=== PATIENT | female | born 1945 | race Caucasian/White ===

== ENCOUNTER → 2017-03-01 | Outpatient (CLI) | payer OTHER ==
[~2017-03-01] MED LIST: ACET-1256 PO; CALC500C70 PO; CIPR-255 PO; CLR10 PO; ECHI125C PO; HYDR-5688 PO; MULT1CAP6 PO
--- NOTE | 2017-03-06 08:50 | ECHOCARDIOGRAM REPORT ---
*NOTICE TO RECEIVING LIBERTARIAN AGENCY This information is strictly Confidential and protected under [place] law. [place] law prohibits you from making any further disclosure of this information unless further disclosure is expressly permitted by the written consent of the person to whom it pertains or is authorized by law. A general authorization for the release of medical or other information is not sufficient for this purpose. Hospital accepts no responsibility if the information is made available to any other person, INCLUDING THE PATIENT. Interpretation Summary * Name: EMILY ZUNIGA Study Date: 03/01/2017 01:31 PM * HR: 90 * : 1945 (M/d/yyyy) Gender: Female Height: 61 in * Age: 71 yrs Ethnicity: [place] Weight: 107 lb * Ordering Physician: Mary Jane Mora M.D. * Referring Physician: Mary Jane Mora M.D. * Performed By: Nika Hoyt RCS * Reason For Study: Murmur * BSA: 1.4 m2 * -- Conclusions -- * Left ventricular systolic function is normal. * Grade I diastolic dysfunction, (abnormal relaxation pattern). * Right ventricular systolic pressure is normal. * Borderline aortic root dilatation. Procedure Details * Left Ventricle The left ventricle is normal in size. There is normal left ventricular wall thickness. Ejection Fraction = 65-70%. Left ventricular systolic function is normal. Grade I diastolic dysfunction, (abnormal relaxation pattern). * Right Ventricle The right ventricle is normal in size and function. * Atria The left atrial size is normal. Right atrial size is normal. * Mitral Valve The mitral valve is grossly normal. Significant mitral regurgitation is absent. * Tricuspid Valve The tricuspid valve is not well visualized, but is grossly normal. There is trace tricuspid regurgitation. Right ventricular systolic pressure is normal. * Aortic Valve The aortic valve is not well visualized. No hemodynamically significant valvular aortic stenosis. There is no significant aortic regurgitation. * Great Vessels Borderline aortic root dilatation. * Pericardium/Pleural There is no pericardial effusion. * * MMode 2D Measurements and Calculations * IVSd 0.77 cm * * LVIDd 3.9 cm * LVIDs 2.2 cm * LVPWd 0.83 cm * * IVS/LVPW 0.92 * FS 42.4 % * EDV(Teich) 64.3 ml * ESV(Teich) 16.6 ml * EF(Teich) 74.2 % * * EDV(cubed) 57.5 ml * ESV(cubed) 11.0 ml * EF(cubed) 80.9 % * * LV mass(C)d 87.9 grams * LV mass(C)dI 60.7 grams/m\S\2 * * SV(Teich) 47.7 ml * SI(Teich) 32.9 ml/m\S\2 * SV(cubed) 46.5 ml * SI(cubed) 32.1 ml/m\S\2 * * Ao root diam 2.2 cm * Ao root area 4.0 cm\S\2 * * LVOT diam 1.9 cm * LVOT area 2.8 cm\S\2 * * EDV(MOD-sp4) 46.8 ml * ESV(MOD-sp4) 9.3 ml * EF(MOD-sp4) 80.0 % * * EDV(MOD-sp2) 49.7 ml * ESV(MOD-sp2) 16.8 ml * EF(MOD-sp2) 66.1 % * * SV(MOD-sp4) 37.4 ml * SI(MOD-sp4) 25.8 ml/m\S\2 * * SV(MOD-sp2) 32.8 ml * SI(MOD-sp2) 22.7 ml/m\S\2 * * * Doppler Measurements and Calculations * MV E max mario 58.8 cm/sec * MV A max mario 64.2 cm/sec * * MV E/A 0.92 * * Ao V2 max 112.4 cm/sec * Ao max PG 5.0 mmHg * Ao max PG (full) 1.0 mmHg * MERCEDES(V,A) 2.5 cm\S\2 * MERCEDES(V,D) 2.5 cm\S\2 * * LV V1 max PG 4.0 mmHg * * LV V1 max 100.3 cm/sec * * TR max mario 226.6 cm/sec * * * *
== END | disposition home or self-care (01) ==
LOC: C.CPL 13:18
PROVIDERS: ATTEND Family Medicine
DX: R01.1 Cardiac murmur, unspecified (principal)

== ENCOUNTER 2017-03-06 07:14 | Inpatient (IN) | payer OTHER ==
[2017-02-22 08:12] VITALS: BMI 19.0
--- NOTE | 2017-02-22 08:50 | PAT Medication Instructions ---
Service Date Feb 22, 2017. Current Home Medication List Acetaminophen (Tylenol), 500 MG PO DAILY PRN for Pain or Fever Calcium/Vitamin D (Os-Chandler 500 Plus D), 1 TAB PO QAM Echinacea (Echinacea), 1 TAB PO DAILY PRN for signs of cold Loratadine (Claritin), 10 MG PO DAILY PRN for ALLERGIC REACTION Multiple Vitamins W/ Minerals (Multi For Her), 1 TAB PO QAM Medication Instructions For Your Scheduled Surgery - Hold the following medications the morning of surgery: Loratadine (Claritin), 10 MG PO DAILY PRN for ALLERGIC REACTION Multiple Vitamins W/ Minerals (Multi For Her), 1 TAB PO QAM Calcium/Vitamin D (Os-[place]and[place] 500 Plus D), 1 TAB PO QAM Echinacea (Echinacea), 1 TAB PO DAILY PRN for signs of cold - Take the following medications the morning of surgery with a sip of water OTHERWISE NOTHING TO EAT OR DRINK AFTER MIDNIGHT: Acetaminophen (Tylenol), 500 MG PO DAILY PRN for Pain or Fever (may take if needed up to 4 hours prior to surgery) - Take the following medications as scheduled the night before surgery: Acetaminophen (Tylenol), 500 MG PO DAILY PRN for Pain or Fever If you have any questions please call us at [phone] or [phone] or [phone]
[2017-02-22 10:37] LABS: BASO % 0.2 %; BASO ABS # 0.01 K/uL (0-0.2); COMPLETE YES; EOS % 0.8 %; IG% 0.2 %; LYMPH % 29.7 %; LYMPH ABS # 1.78 K/uL (1.2-3.4); MEAN CELL VOLUME 86.7 fL (80-100); MEAN CORPUSCULAR HEMOGLOBIN 28.5 pg (25-34); MEAN CORPUSCULAR HGB CONC 32.9 g/dl (32-36); MEAN PLATELET VOLUME 12.1 fL (7.4-10.4); NEUT % 58.1 %; PLATELET COUNT 172 K/uL (130-400); RED BLOOD COUNT 4.73 M/uL (4.2-5.4); WHITE BLOOD COUNT 5.99 K/uL (4.8-10.8)
[2017-02-22 10:46] LABS: BUN/CREATININE RATIO 16.5 (10-20); CALCIUM 9.6 mg/dl (8.5-10.1); CREATININE 0.75 mg/dl (0.60-1.20); POTASSIUM 4.2 mmol/L (3.5-5.1)
[~2017-03-06] VITALS: Ht 154.9 cm; Wt 46.0 kg
[2017-03-06] VITALS (12 sets, daily range): BP systolic 119–186; BP diastolic 67–84; PULSE 67–89; TEMP 36.3–36.9; O2SAT 96–100; Ht 154.9 cm; Wt 46.0 kg
[~2017-03-06 07:14] MED LIST changes: -CIPR-255 PO; +CLINDAMYCIN 600 MG/54 ML D5W IV SCH; -HYDR-5688 PO; +LACTATED RINGER'S 1000ML 1,000 ML IV SCH
[2017-03-06] MEDS ORDERED: DEXAMETHASONE SOD INJ 4 MG/ML VIAL ONE (08:44)
[2017-03-06] MEDS ORDERED: ONDANSETRON INJ 2 MG/ML 2 ML VIAL ONE (08:44)
[2017-03-06] MEDS ORDERED: PROPOFOL IV EMULSION 10 MG/ML 20 ML VIAL IV ONE (08:44)
[2017-03-06] MEDS ORDERED: LIDOCAINE HCL 2% 2 ML VIAL (20MG/ML) ONE (08:44)
[2017-03-06] MEDS ORDERED: FENTANYL CITRATE INJ 50 MCG/1 ML 2 ML VIAL ONE ×2 (08:45→10:55)
[2017-03-06] MEDS ORDERED: MIDAZOLAM HCL 1 MG/ML 2ML VIAL ONE (08:45)
[2017-03-06] MEDS ORDERED: ATROPINE SULFATE 0.1 MG/ML 5ML SYR IV PRN (09:45)
[2017-03-06] MEDS ORDERED: FENTANYL CITRATE INJ 50 MCG/1 ML 2 ML VIAL IV PRN (09:45)
[2017-03-06] MEDS ORDERED: EpHEDrine SULFATE INJ 50 MG/ML AMP IV PRN (09:45)
[2017-03-06] MEDS ORDERED: ONDANSETRON INJ 2 MG/ML 2 ML VIAL IV PRN ×2 (09:45→11:45)
--- NOTE | 2017-03-06 09:58 | DIAGNOSTIC IMAGING REPORT ---
LYMPHOSCINTIGRAPHY CLINICAL HISTORY: Right-sided breast cancer. PROCEDURE: Using standard sterile technique, 4 periareolar intradermal and one deep injection of 0.522 mCi of Lymphoseek was placed in the right breast. The patient tolerated the procedure well. There were no immediate complications. The patient was subsequently transported to the surgical suite. No imaging was obtained at the referring physician's request. IMPRESSION: Injection of 0.522 mCi of Lymphoseek in the right breast. Electronically signed by: Pranav Patel M.D. 03/06/2017 9:57 AM Dictated Date/Time: 03/06/2017 9:48 AM
[2017-03-06] MEDS ORDERED: METHYLENE BLUE 0.5% 10 ML VIAL ONE (10:14)
[2017-03-06] MEDS ORDERED: BUPIVACAINE 0.5 % 5 MG/1 ML MPF 30ML VIAL ONE (10:14)
[2017-03-06] MEDS ORDERED: ISOSULFAN BLUE 10 MG/ML VIAL 5 ML ONE (10:19)
[2017-03-06] MEDS ORDERED: LACTATED RINGER'S 1000ML 1,000 ML IV SCH (11:32)
--- NOTE | 2017-03-06 11:32 | [facility] Operative Report ---
Operative Report Operative Date Mar 06, 2017. Pre-Operative Diagnosis Right Breast Cancer Post-Operative Diagnosis Same as preoperative Procedure(s) Performed Right Breast Mastectomy with Right [place] Lymph Node Biopsy Surgeon Dr. Jesus Parekh Java Web Application Developer Surgeon(s) Florencio Mancini PA-C Estimated Blood Loss 20ML Findings SLN negative on frozen section Specimens Frozen Section: 1. [place] Lymph Node, Right Breast Fresh: A. Right Breast, silk is lateral Drains #[address] [place] to bulb Anesthesia gen Complication(s) None Disposition Recovery Room / PACU I attest to the content of the Intraoperative Record and any orders documented therein. Any exceptions are noted below.
[2017-03-06] MEDS ORDERED: PROMETHAZINE HCL INJ 25 MG in SODIUM CHLORIDE 0.9% 50ML 50 ML IV PRN (11:45)
[2017-03-06] MEDS ORDERED: MoRPHine SULFATE 2 MG/ML CARP IV PRN (11:45)
[2017-03-06] MEDS ORDERED: ACETAMINOPHEN IV 100 ML IV ONE (11:45)
[2017-03-06] MEDS ORDERED: MoRPHine SULFATE 4 MG/ML 1 ML CARP\\VIAL IV PRN (11:45)
[2017-03-06] MEDS ORDERED: HYDROCODONE/ACETAMOPHEN 5/325MG TAB PO PRN ×2 (11:45)
--- NOTE | 2017-03-06 11:54 | OPERATIVE REPORT ---
DATE OF OPERATION: 03/06/2017 NAME OF OPERATION: Right mastectomy with sentinel lymph node biopsy. PREOPERATIVE DIAGNOSIS: Right breast cancer. POSTOPERATIVE DIAGNOSIS: Same. STAFF SURGEON: Dr. Jesus Parekh. PERSONAL LINES APPRAISER: Florencio Mancini PA-C ANESTHESIA: General. DESCRIPTION OF PROCEDURE: The patient was brought into the operating room and placed on the operating table in the supine position. Her right arm was extended on an arm board. Her right chest and axilla were prepped and draped in the usual fashion. Using the Neoprobe, we made an incision in the right axilla using 0.5% plain Marcaine to anesthetize the skin and carrying dissection down identifying the sentinel lymph node, which was relatively large. It was sent for frozen section and it was found to be negative. During the frozen section, we performed mastectomy by making an elliptical incision transversely across the right breast from sternum to the axilla, incorporating the nipple areolar complex and dissecting the subcutaneous tissue away from the breast tissue superiorly and inferiorly constructing superior and inferior breast flaps. Then, the breast was dissected away from the pectoralis major muscle, taking the fascia. It was marked with a long silk suture lateral. At this point, after irrigation, the breast incision was closed after placing a 15 round Beck-Bell drain into the wound, securing it to the skin using 3-0 nylon suture. The tissue was reapproximated using subcutaneous 3-0 Vicryl and then subcuticular running suture of 4-0 Monocryl and Steri-Strips. The axilla was closed, reapproximating the deep tissue using 2-0 plain catgut suture and then the skin using interrupted 4-0 nylon suture. The patient was transferred to recovery room in stable condition. I attest to the content of the Intraoperative Record and any orders documented therein. Any exception s are noted below.
--- NOTE | 2017-03-06 12:26 | Anesthesiology Progress Note ---
Anesthesia Post Op Note Date & Time Mar 06, 2017 at 12:26 Vital Signs Pain Intensity: 1 Vital Signs Past 12 Hours Date Time Temp Pulse Resp B/P (MAP) Pulse Ox O2 Delivery O2 Flow Rate FiO2 03/06/17 12:17 36.3 03/06/17 12:15 168/73 03/06/17 12:12 80 16 100 03/06/17 12:12 80 03/06/17 12:10 164/73 03/06/17 12:07 77 13 03/06/17 12:07 76 13 100 03/06/17 12:05 152/78 03/06/17 12:02 77 18 03/06/17 12:02 77 18 100 03/06/17 12:00 171/74 03/06/17 11:58 Nasal Cannula 3 03/06/17 11:57 83 15 100 03/06/17 11:57 83 15 03/06/17 11:55 169/82 03/06/17 11:52 87 18 03/06/17 11:52 87 18 100 03/06/17 11:50 169/81 03/06/17 11:47 95 16 100 03/06/17 11:47 95 16 03/06/17 11:45 159/78 03/06/17 11:44 180/81 03/06/17 11:42 36.3 95 14 180/89 98 Mask 10 03/06/17 08:06 36.7 67 16 176/73 (107) 97 Room Air Notes Mental Status: alert / awake / arousable, participated in evaluation Pt Amnestic to Procedure: Yes Nausea / Vomiting: adequately controlled Pain: adequately controlled Airway Patency, RR, SpO2: stable & adequate BP & HR: stable & adequate Hydration State: stable & adequate Anesthetic Complications: no major complications apparent
[2017-03-06] MEDS ORDERED: HydrALAZINE HCL 20 MG/ML VIAL IV. PRN (14:00)
--- NOTE | 2017-03-06 14:21 | Medical Consult ---
Consultation Date of Consultation: Mar 06, 2017. Attending Physician: Jesus Parekh M.D. Reason for Consultation: Medical management History of Present Illness This is a 71 y/o female with a history of right breast cancer, osteoporosis and h/o brain aneurysm who presents s/p right mastectomy w/sentinel lymph node biopsy with Dr. Parekh on 03/06 for medical management. The patient reports feeling well postoperatively. She does complain of some nausea but denies any vomiting. She states that she has some mild achy pain at the surgical site which she rates a 3/10. She also reports a dry, non-productive cough and some tingling in her right arm. She has not yet eaten due to the nausea. She does report passing gas. She has not urinated or had a bowel movement yet. The patient denies fevers, chills, sweats, chest pain, palpitations, claudication, cough, wheezing, shortness of breath, vomiting, abdominal pain, dysuria, hematuria, urinary retention, paralysis, weakness. Past Medical/Surgical History Right breast cancer Osteoporosis H/o brain aneurysm 1984 s/p surgical intervention Family History Breast cancer Lung cancer Stroke Social History Smoking Status: Never Smoker Smokeless Tobacco Use: No Alcohol Use: none Drug Use: none Marital Status: Housing Status: lives with significant other Occupation Status: retired Allergies Coded Allergies: Penicillins (Verified Allergy, Intermediate, Hives, 03/06/17) Sulfa Antibiotics (Verified Allergy, Intermediate, Hives, 03/06/17) Sulfamethoxazole w/Trimethoprim (Verified Allergy, Intermediate, Hives, ) Current Inpatient Medications Current Inpatient Medications Medications (Trade) Dose Ordered Sig/Klaudia Route Start Time Stop Time Status Last Admin Dose Admin Fentanyl Citrate (Fentanyl Inj) 50 mcg Q5M PRN IV 03/06/17 09:45 03/06/17 14:45 03/06/17 11:51 50 MCG Ondansetron HCl (Zofran Inj) 4 mg ONE PRN IV 03/06/17 09:45 03/06/17 14:45 Ephedrine Sulfate (EpHEDrine SULFATE INJ) 5 mg Q5M PRN IV 03/06/17 09:45 03/06/17 14:45 Atropine Sulfate (Atropine Sulfate 0.1MG/Ml Inj) 0.5 mg Q1M PRN IV 03/06/17 09:45 03/06/17 14:45 Lactated Ringer's 1,000 ml @ 50 mls/hr Q20H IV 03/06/17 11:32 03/06/17 16:00 03/06/17 13:03 50 MLS/HR Clindamycin Phosphate 600 mg/ Dextrose 54 ml @ 100 mls/hr Q8H IV 03/06/17 18:00 03/16/17 13:59 Acetaminophen/ Hydrocodone Bitart ([place] 5/325 Tab) 1 tab Q4 PRN PO 03/06/17 11:45 03/20/17 11:44 Acetaminophen/ Hydrocodone Bitart ([place] 5/325 Tab) 2 tab Q4 PRN PO 03/06/17 11:45 03/20/17 11:44 Morphine Sulfate (MoRPHine SULFATE INJ) 2 mg Q4H PRN IV 03/06/17 11:45 03/20/17 11:44 Morphine Sulfate (MoRPHine SULFATE INJ) 4 mg Q4H PRN IV 03/06/17 11:45 03/20/17 11:44 Promethazine HCl 25 mg/Sodium Chloride 51 ml @ 204 mls/hr Q6H PRN IV 03/06/17 11:45 04/05/17 11:44 Ondansetron HCl (Zofran Inj) 4 mg Q6H PRN IV 03/06/17 11:45 04/05/17 11:44 Hydralazine HCl (HydrALAZINE INJ) 10 mg Q6H PRN IV. 03/06/17 14:00 04/05/17 13:59 Review of Systems See HPI for pertinent positives and negatives. All other systems reviewed and negative. Physical Exam Date Time Temp Pulse Resp B/P (MAP) Pulse Ox O2 Delivery O2 Flow Rate FiO2 03/06/17 13:35 74 18 177/78 (111) 100 2.0 03/06/17 13:05 72 18 186/84 (118) 100 Nasal Cannula 4.0 03/06/17 12:30 36.3 79 18 179/75 (109) 100 Nasal Cannula 4.0 03/06/17 12:30 100 Nasal Cannula 4.0 03/06/17 12:30 100 Nasal Cannula 4.0 03/06/17 12:17 36.3 03/06/17 12:15 168/73 03/06/17 12:12 80 16 100 03/06/17 12:12 80 03/06/17 12:10 164/73 03/06/17 12:07 77 13 03/06/17 12:07 76 13 100 03/06/17 12:05 152/78 03/06/17 12:02 77 18 03/06/17 12:02 77 18 100 03/06/17 12:00 171/74 03/06/17 11:58 Nasal Cannula 3 03/06/17 11:57 83 15 100 03/06/17 11:57 83 15 03/06/17 11:55 169/82 03/06/17 11:52 87 18 03/06/17 11:52 87 18 100 03/06/17 11:50 169/81 03/06/17 11:47 95 16 100 03/06/17 11:47 95 16 03/06/17 11:45 159/78 03/06/17 11:44 180/81 03/06/17 11:42 36.3 95 14 180/89 98 Mask 10 03/06/17 08:06 36.7 67 16 176/73 (107) 97 Room Air General appearance: Well-developed, well-nourished, no apparent distress Head: Normocephalic, atraumatic Eyes: Normal inspection, PERRL, EOMI ENT: +Minimal blood in pharynx, presumably from intubation. Normal ENT inspection, hearing grossly normal, pharynx normal Neck: Supple, no JVD, trachea midline Respiratory/Chest: +Decreased breath sounds in bases. Chest bound with geovanni bandage. Drain in place. Lungs clear to auscultation, normal breath sounds, no respiratory distress Cardiovascular: +Systolic murmur. Regular rate & rhythm, no gallop Abdomen/GI: Normal bowel sounds, non-tender, soft Extremities/Musculoskeletal: Normal inspection, no calf tenderness, no pedal edema Neurological/Psych: Alert, normal mood/affect, oriented x 3 Skin: Normal color, warm/dry, no rash Laboratory Results Last 24 Hours Test 03/06/17 14:04 Assessment & Plan 71 y/o female with a history of right breast cancer, osteoporosis and h/o brain aneurysm who presents s/p right mastectomy w/sentinel lymph node biopsy with Dr. Parekh on 03/06 for medical management. S/p right mastectomy w/sentinel lymph node biopsy--POD #0 -Pain management, DVT prophylaxis, and PT/OT as per primary team Elevated BP w/o diagnosis of HTN--no previous h/o HTN -Cover with hydralazine 10 mg IV q6h prn SBP >180 Nausea--pt is going to try eb luna -Zofran 4 mg IV q6h prn Right breast cancer--invasive ductal carcinoma, ER and AR positive per pathology reports -Pt denies any chemo or radiation Osteoporosis -Continue calcium and vitamin D supplements Thank you for this consultation. We will continue to follow. Attending Attestation: Pt seen/examined, chart reviewed, care plan d/w MAIKEL Yu. I agree w/ the urbina components of her documentation. 71yo female with right-sided breast ca who underwent mastectomy with SLN biopsy today by Dr. Jesus Parekh. Post-op she has had persistent nausea with intermittent emesis and inability to eat/drink. She has also had elevated BPs but carries no prior dx of HTN. During my assessment she denied any headache or abdominal pain. +flatus. Only 1 urinary void since her surgery. PMH, PSH, allergies, meds, sochx, famhx, ros - reviewed gen - thin, looks ill mouth - MM dry neck - no JVD heart - RRR, s1, s2, 1/6 REGGIE LSB lungs - CTA b/l chest - right upper chest with binder in place and drain abd - soft, BS+ but slightly decreased, ND, NT ext - no edema A/P: 1. right-sided breast ca s/p mastectomy today 2. post-op nausea/emesis with inability to take PO - I informed the on-call general surgeon about this issue. Plan - reduce diet to clear liquids; phenergan/zofran prn; fluids - D5NS with KCL at 100cc/hr. Add H2 verna IV. Suspect due to anesthesia effects rather than ileus process as she is passing flatus. Re-eval in am. 3. recheck bmp, mag in am. 4. elevated BP w/o dx of HTN - monitor carefully; BPs may be due to pain Farhad Bernstein MD
[2017-03-06] MEDS ORDERED: CIPR-255 PO (14:31)
[2017-03-06] MEDS ORDERED: HYDR-5688 PO (14:31)
--- NOTE | 2017-03-06 14:33 | Discharge Instructions ---
Discharge Instructions Date of Service Mar 06, 2017. Admission Reason for Admission: Right Breast Cancer W/Nm Inj Only Discharge Discharge Diagnosis / Problem: Rt breast cancer Discharge Goals Goal(s): Decrease discomfort, Improve function, Improve disease control Activity Recommendations Activity Limitations: as noted below Lifting Limitations: no more than 10 pounds Exercise/Sports Limitations: until after follow-up appointment May Resume Sexual Activity: when tolerated Shower/Bathe: no limitations (may shower- do not soak in bath) Driving or Machine Use: 2 weeks SPECIAL CARE INSTRUCTIONS: * Cover incisions and change daily for comfort/drainage. * Empty drain 2-3 times per day and record. * May use ibuprofen for pain as tolerated. * Expect some swelling and bruising. Call your doctor if: * Temperature above 101 degrees * Pain not relieved by pain medicine ordered * There is increased drainage or redness from any incision * You have any unanswered questions or concerns [phone]. FOLLOW UP VISIT: If not already scheduled, please call the office for a follow-up visit. for next week- drain check OFFICE PHONE NUMBER: Dr. Parekh Office . Current Hospital Diet Patient's current hospital diet: Regular Diet Discharge Diet Recommended Diet: Regular Diet Procedures Procedures Performed: Right Breast Mastectomy with Right [place] Lymph Node Biopsy Pending Studies Studies pending at discharge: no Medical Emergencies . Who to Call and When: Medical Emergencies: If at any time you feel your situation is an emergency, please call 911 immediately. . Non-Emergent Contact Non-Emergency issues call your: Primary Care Provider, Surgeon . "Provider Documentation" section prepared by Jesus Parekh. . VTE Core Measure Inpt VTE Proph given/why not?: SCD's
[2017-03-06 14:52] LABS: BASO % 0.2 %; BASO ABS # 0.01 K/uL (0-0.2); COMPLETE YES; HEMATOCRIT 35.8 % (37-47); LYMPH % 20.7 %; LYMPH ABS # 0.93 K/uL (1.2-3.4); MEAN CELL VOLUME 85.2 fL (80-100); MEAN CORPUSCULAR HEMOGLOBIN 28.8 pg (25-34); MEAN CORPUSCULAR HGB CONC 33.8 g/dl (32-36); MEAN PLATELET VOLUME 11.4 fL (7.4-10.4); MONO % 1.8 %; NEUT % 77.3 %; PLATELET COUNT 138 K/uL (130-400)
[2017-03-06 15:13] LABS: BUN/CREATININE RATIO 25.5 (10-20); CALCIUM 8.6 mg/dl (8.5-10.1); CREATININE 0.49 mg/dl (0.60-1.20); POTASSIUM 3.9 mmol/L (3.5-5.1)
[2017-03-06] MEDS: CLINDAMYCIN IV 600 MG in DEXTROSE 5% 50ML 50 ML IV SCH (18:19)
[2017-03-06] MEDS: D5NSS + 20MEQ KCL 1,000 ML IV SCH (20:44)
[2017-03-06] MEDS: RANITIDINE IV 50 MG in DEXTROSE 5% 100ML 100 ML IV SCH (22:47)
[2017-03-07] MEDS: CLINDAMYCIN IV 600 MG in DEXTROSE 5% 50ML 50 ML IV SCH ×3 (02:19→18:37)
[2017-03-07 03:43] VITALS: BP 130/69; PULSE 84; TEMP 37; O2SAT 97
--- NOTE | 2017-03-07 05:58 | Surgery Progress Note ---
Surgery Progress Note Date of Service Mar 07, 2017. Subjective had some emesis last pm- now doing much better min drain output Objective Vital Signs: Date Time Temp Pulse Resp B/P (MAP) Pulse Ox O2 Delivery O2 Flow Rate FiO2 03/07/17 03:43 37.0 84 17 130/69 (89) 97 Room Air 03/07/17 00:05 Room Air 03/06/17 23:07 36.8 81 15 128/71 (90) 97 Room Air 03/06/17 22:14 82 97 Room Air 03/06/17 19:29 36.9 77 15 119/67 (84) 97 Room Air 03/06/17 17:40 Room Air 03/06/17 17:38 149/75 (99) 03/06/17 17:30 89 156/77 (103) 96 Room Air 03/06/17 16:42 36.7 83 18 183/81 (115) 100 Nasal Cannula 4.0 03/06/17 15:49 36.4 70 18 172/75 (107) 99 Nasal Cannula 4.0 03/06/17 15:00 36.6 74 18 161/78 (105) 99 Nasal Cannula 2.0 03/06/17 13:35 74 18 177/78 (111) 100 2.0 03/06/17 13:05 72 18 186/84 (118) 100 Nasal Cannula 4.0 03/06/17 12:30 36.3 79 18 179/75 (109) 100 Nasal Cannula 4.0 03/06/17 12:30 100 Nasal Cannula 4.0 03/06/17 12:30 100 Nasal Cannula 4.0 03/06/17 12:17 36.3 03/06/17 12:15 168/73 03/06/17 12:12 80 16 100 03/06/17 12:12 80 03/06/17 12:10 164/73 03/06/17 12:07 77 13 03/06/17 12:07 76 13 100 03/06/17 12:05 152/78 03/06/17 12:02 77 18 03/06/17 12:02 77 18 100 03/06/17 12:00 171/74 03/06/17 11:58 Nasal Cannula 3 03/06/17 11:57 83 15 100 03/06/17 11:57 83 15 03/06/17 11:55 169/82 03/06/17 11:52 87 18 03/06/17 11:52 87 18 100 03/06/17 11:50 169/81 03/06/17 11:47 95 16 100 03/06/17 11:47 95 16 03/06/17 11:45 159/78 03/06/17 11:44 180/81 03/06/17 11:42 36.3 95 14 180/89 98 Mask 10 03/06/17 08:06 36.7 67 16 176/73 (107) 97 Room Air General Appearance: no apparent distress Respiratory/Chest: no respiratory distress Incision(s): dry, intact, drainage (min serosang drainage) Laboratory Results: Results Past 24 Hours Test 03/06/17 14:30 03/07/17 04:44 Range/Units White Blood Count 4.50 4.8-10.8 K/uL Red Blood Count 4.20 4.2-5.4 M/uL Hemoglobin 12.1 12.0-16.0 g/dL Hematocrit 35.8 37-47 % Mean Corpuscular Volume 85.2 80-100 fL Mean Corpuscular Hemoglobin 28.8 25-34 pg Mean Corpuscular Hemoglobin Concent 33.8 32-36 g/dl Platelet Count 138 130-400 K/uL Mean Platelet Volume 11.4 7.4-10.4 fL Neutrophils (%) (Auto) 77.3 % Lymphocytes (%) (Auto) 20.7 % Monocytes (%) (Auto) 1.8 % Eosinophils (%) (Auto) 0.0 % Basophils (%) (Auto) 0.2 % Neutrophils # (Auto) 3.48 1.4-6.5 K/uL Lymphocytes # (Auto) 0.93 1.2-3.4 K/uL Monocytes # (Auto) 0.08 0.11-0.59 K/uL Eosinophils # (Auto) 0.00 0-0.5 K/uL Basophils # (Auto) 0.01 0-0.2 K/uL RDW Standard Deviation 39.6 36.4-46.3 fL RDW Coefficient of Variation 12.8 11.5-14.5 % Immature Granulocyte % (Auto) 0.0 % Immature Granulocyte # (Auto) 0.00 0.00-0.02 K/uL Sodium Level 137 136-145 mmol/L Potassium Level 3.9 3.5-5.1 mmol/L Chloride Level 106 98-107 mmol/L Carbon Dioxide Level 28 21-32 mmol/L Anion Gap 3.0 3-11 mmol/L Blood Urea Nitrogen 13 7-18 mg/dl Creatinine 0.49 0.60-1.20 mg/dl Est Creatinine Clear Calc Drug Dose 78.7 ml/min Estimated GFR () 115.2 Estimated GFR (Non- 99.4 BUN/Creatinine Ratio 25.5 10-20 Random Glucose 122 70-99 mg/dl Calcium Level 8.6 8.5-10.1 mg/dl Assessment & Plan 03/07/17- s/p Rt mastectomy w/ sentinel lymph node bx (negative on frozen sect) will cont IV, check labs- adv diet as tolerated. Plan d/c tomorrow if progresses
[2017-03-07] MEDS: D5NSS + 20MEQ KCL 1,000 ML IV SCH ×3 (06:00→22:42)
[2017-03-07] MEDS: RANITIDINE IV 50 MG in DEXTROSE 5% 100ML 100 ML IV SCH ×3 (06:00→22:42)
[2017-03-07 06:35] LABS: HEMATOCRIT 33.5 % (37-47); MEAN CORPUSCULAR HEMOGLOBIN 29.1 pg (25-34); MEAN CORPUSCULAR HGB CONC 34.6 g/dl (32-36); MEAN PLATELET VOLUME 11.1 fL (7.4-10.4); PLATELET COUNT 125 K/uL (130-400); RED BLOOD COUNT 3.99 M/uL (4.2-5.4); WHITE BLOOD COUNT 3.93 K/uL (4.8-10.8)
[2017-03-07 07:11] LABS: BUN/CREATININE RATIO 14.8 (10-20); CALCIUM 8.3 mg/dl (8.5-10.1); CREATININE 0.65 mg/dl (0.60-1.20); MAGNESIUM 1.8 mg/dl (1.8-2.4); POTASSIUM 4.3 mmol/L (3.5-5.1)
[2017-03-07 07:58] VITALS: BP 128/68; PULSE 76; TEMP 36.9; O2SAT 97
[2017-03-07 09:18] VITALS: O2SAT 97
--- NOTE | 2017-03-07 10:28 | Anesthesiology Progress Note ---
Anesthesia Post Op Note Date & Time Mar 07, 2017 at 10:28 Vital Signs Pain Intensity: 0.0 Vital Signs Past 12 Hours Date Time Temp Pulse Resp B/P (MAP) Pulse Ox O2 Delivery O2 Flow Rate FiO2 03/07/17 09:18 97 Room Air 03/07/17 07:58 36.9 76 14 128/68 (88) 97 Room Air 03/07/17 03:43 37.0 84 17 130/69 (89) 97 Room Air 03/07/17 00:05 Room Air 03/06/17 23:07 36.8 81 15 128/71 (90) 97 Room Air Notes Mental Status: alert / awake / arousable, participated in evaluation Pt Amnestic to Procedure: Yes Nausea / Vomiting: adequately controlled Pain: adequately controlled Airway Patency, RR, SpO2: stable & adequate BP & HR: stable & adequate Hydration State: stable & adequate Anesthetic Complications: no major complications apparent
[2017-03-07 14:52] VITALS: BP 153/57; PULSE 99; TEMP 37; O2SAT 97
--- NOTE | 2017-03-07 16:19 | Progress Note ---
Subjective Date of Service: Mar 07, 2017. Subjective Pt evaluation today including: conversation w/ patient, conversation w/ family , physical exam, chart review, lab review, review of studies, conversation w/ direct sales consultant, review of inpatient medication list Was not able to eating drinking yesterday, with a few nausea vomiting , however is much improved this morning, was able to tolerate diet Up and walk and conversational, pleasant Review of Systems Constitutional: No fever, No chills, No sweats, No weight loss, No weakness, No fatigue, No problem reported Eyes: No worsening of vision, No eye pain, No redness, No discharge, No diplopia ENT: No hearing loss, No unusual epistaxis, No nasal symptoms, No sore throat, No tinnitus, No dental problems, No trouble swallowing Respiratory: No cough, No sputum, No wheezing, No shortness of breath, No dyspnea on exertion, No dyspnea at rest, No hemoptysis Cardiac: No chest pain, No orthopnea, No PND, No edema, No claudication, No palpitations Abdomen: No pain, No nausea, No vomiting, No diarrhea, No constipation Musculoskeletal: No joint pain, No muscle pain, No swelling, No calf pain Female : No dysuria, No urinary frequency, No hematuria, No incontinence, No abnormal vaginal bleeding, No vaginal discharge Neurologic: No memory loss, No paralysis, No weakness, No numbness/tingling, No vertigo, No balance problems Psychiatric: No depression symptoms, No anhedonism, No anxiety, No insomnia, No substance abuse Heme: No abnormal bleeding/bruising, No clotting problems, No swollen lymph nodes, No night sweats Endo: No fatigue, No excessive thirst, No excessive urination Skin: No rash, No itch, No new/changing skin lesions, No color change, No bleeding Objective Vital Signs Date Time Temp Pulse Resp B/P (MAP) Pulse Ox O2 Delivery O2 Flow Rate FiO2 03/07/17 14:52 37.0 99 18 153/57 (89) 97 Room Air 03/07/17 09:18 97 Room Air 03/07/17 08:15 Room Air 03/07/17 07:58 36.9 76 14 128/68 (88) 97 Room Air 03/07/17 03:43 37.0 84 17 130/69 (89) 97 Room Air 03/07/17 00:05 Room Air 03/06/17 23:07 36.8 81 15 128/71 (90) 97 Room Air 03/06/17 22:14 82 97 Room Air 03/06/17 19:29 36.9 77 15 119/67 (84) 97 Room Air 03/06/17 17:40 Room Air 03/06/17 17:38 149/75 (99) 03/06/17 17:30 89 156/77 (103) 96 Room Air 03/06/17 16:42 36.7 83 18 183/81 (115) 100 Nasal Cannula 4.0 Physical Exam General Appearance: WD/WN, no apparent distress, + thin Eyes: normal inspection, PERRL, EOMI, sclerae normal ENT: normal ENT inspection, hearing grossly normal, pharynx normal Neck: supple, no adenopathy, thyroid normal, no JVD, no carotid bruits, trachea midline Respiratory/Chest: chest non-tender, lungs clear, normal breath sounds, no respiratory distress, no accessory muscle use Cardiovascular: regular rate, rhythm, no edema, no gallop, no JVD, no murmur Abdomen: normal bowel sounds, non tender, soft, no organomegaly, no pulsatile mass Extremities: normal range of motion, non-tender, normal inspection, no pedal edema, no calf tenderness, normal capillary refill, pelvis stable Neurologic/Psychiatric: certification technician II-XII nml as tested, no motor/sensory deficits, alert, normal mood/affect, oriented x 3 Skin: normal color, warm/dry, no rash Lymphatic: no adenopathy Laboratory Results Last 24 Hours Test 03/07/17 05:55 White Blood Count 3.93 K/uL Red Blood Count 3.99 M/uL Hemoglobin 11.6 g/dL Hematocrit 33.5 % Mean Corpuscular Volume 84.0 fL Mean Corpuscular Hemoglobin 29.1 pg Mean Corpuscular Hemoglobin Concent 34.6 g/dl RDW Standard Deviation 39.3 fL RDW Coefficient of Variation 12.9 % Platelet Count 125 K/uL Mean Platelet Volume 11.1 fL Sodium Level 137 mmol/L Potassium Level 4.3 mmol/L Chloride Level 106 mmol/L Carbon Dioxide Level 25 mmol/L Anion Gap 6.0 mmol/L Blood Urea Nitrogen 10 mg/dl Creatinine 0.65 mg/dl Est Creatinine Clear Calc Drug Dose 59.3 ml/min Estimated GFR () 105.0 Estimated GFR (Non- 90.6 BUN/Creatinine Ratio 14.8 Random Glucose 161 mg/dl Calcium Level 8.3 mg/dl Magnesium Level 1.8 mg/dl Hepatitis C Antibody Screen NEG Assessment and Plan 71 y/o female with a history of right breast cancer, osteoporosis and h/o brain aneurysm Admitted to Dr. Parekh s/p right mastectomy w/sentinel lymph node biopsy with Dr. Parekh on 03/06 Hospitalist service was consulted for medical management. S/p right mastectomy w/sentinel lymph node biopsy--POD #1 -Pain management, DVT prophylaxis, and PT/OT as per primary team Elevated BP w/o diagnosis of HTN: Resolved no previous h/o HTN -Cover with hydralazine 10 mg IV q6h prn SBP >180 Nausea post op, resolved -Zofran 4 mg IV q6h prn Right breast cancer--invasive ductal carcinoma, ER and [place] positive per pathology reports -Pt denies any chemo or radiation Osteoporosis -Continue calcium and vitamin D supplements Discussed with patient and family and nurse about care plan, answered all the questions Continued [facility] stay due to: multiple IV medications needed Discharge planning: home
[2017-03-07 22:06] VITALS: BP 145/67
[2017-03-07 22:55] VITALS: BP 150/69; PULSE 80; TEMP 37; O2SAT 98
[2017-03-08] MEDS: CLINDAMYCIN IV 600 MG in DEXTROSE 5% 50ML 50 ML IV SCH (01:55)
[2017-03-08] MEDS: RANITIDINE IV 50 MG in DEXTROSE 5% 100ML 100 ML IV SCH (06:23)
[2017-03-08 07:10] VITALS: BP 143/75; PULSE 91; TEMP 37; O2SAT 97
--- NOTE | 2017-03-08 08:07 | DISCHARGE SUMMARY ---
PRINCIPAL DIAGNOSIS: Right breast cancer. PROCEDURES: The patient underwent right mastectomy with sentinel lymph node biopsy. HISTORY OF PRESENT ILLNESS: The patient is a 71-year-old female with biopsy proven invasive cancer of the right breast in 3 separate areas. She is brought into the hospital for elective right breast surgery. HOSPITAL COURSE: The patient was brought in the hospital on 03/06/2017 where she underwent injection of the breast for sentinel lymph node biopsy. She was taken to the operating room where she underwent a right mastectomy with sentinel lymph node biopsy. The sentinel lymph node was negative on frozen section. She has done quite well and is felt stable for discharge home. She did have an episode of nausea and vomiting postoperatively during the evening of the first postoperative day. She has done quite well now and is felt stable for discharge for followup in the office next week.
[2017-03-08 08:18] VITALS: BP 143/75; PULSE 91; TEMP 37; O2SAT 97
[2017-03-08 08:23] LABS: HEMATOCRIT 36.4 % (37-47); MEAN CELL VOLUME 84.7 fL (80-100); MEAN CORPUSCULAR HEMOGLOBIN 28.6 pg (25-34); MEAN PLATELET VOLUME 11.4 fL (7.4-10.4); PLATELET COUNT 142 K/uL (130-400); WHITE BLOOD COUNT 5.08 K/uL (4.8-10.8)
[2017-03-08 08:30] LABS: MEAN CORPUSCULAR HGB CONC 33.8 g/dl (32-36)
[2017-03-08 08:44] LABS: BUN/CREATININE RATIO 19.3 (10-20); CREATININE 0.75 mg/dl (0.60-1.20); POTASSIUM 4.1 mmol/L (3.5-5.1)
== END 2017-03-08 10:53 | disposition home or self-care (01) | DRG 581 ==
LOC: C.ACU 07:14 → C.MSW 11:36 → ENRESERV 12:08
PROVIDERS: ADMIT Surgery; ATTEND Surgery
PROC: 07B53ZX Excision of Right Axillary Lymphatic, Percutaneous Approach, Diagnostic (ICD-10-PCS; principal; 2017-03-06 10:20)
PROC: 0HTT0ZZ Resection of Right Breast, Open Approach (ICD-10-PCS; principal; 2017-03-06 10:20)
DX: C50.911 Malignant neoplasm of unspecified site of right female breast (principal); M81.0 Age-related osteoporosis without current pathological fracture; R03.0 Elevated blood-pressure reading, without diagnosis of hypertension; R11.2 Nausea with vomiting, unspecified; Z79.899 Other long term (current) drug therapy; Z88.0 Allergy status to penicillin; Z88.2 Allergy status to sulfonamides

== ENCOUNTER → 2017-04-10 | Outpatient (CLI) | payer OTHER ==
[~2017-04-10] MED LIST changes: +CIPR-255 PO; -CLINDAMYCIN 600 MG/54 ML D5W IV SCH; +HYDR-5688 PO; -LACTATED RINGER'S 1000ML 1,000 ML IV SCH
== END | disposition home or self-care (01) ==
LOC: C.LABSPEC 04-08 15:30
PROVIDERS: ATTEND Internal Medicine Hematology & Oncology
DX: C50.911 Malignant neoplasm of unspecified site of right female breast (principal)

== ENCOUNTER → 2017-04-15 | Outpatient (CLI) | payer OTHER ==
--- NOTE | 2017-04-15 09:52 | DIAGNOSTIC IMAGING REPORT ---
PET/CT SKULL-THIGH CLINICAL HISTORY: 71 years-old Female presenting with BREAST CANCER, invasive ductal carcinoma of the right breast diagnosed December 08, 2016. TECHNIQUE: PET/CT was performed from the base of the skull through the proximal thighs following the intravenous administration of 11.954 mCi of F18-FDG. Blood glucose level 77 mg/dL. The injection was performed at 7:49 AM and imaging began at 8:[address] was performed for attenuation correction purposes and anatomic localization. COMPARISON: None. CT DOSE (mGy.cm): The estimated cumulative dose is 1156.30. FINDINGS: Head and neck: No FDG-avid disease or significant lymphadenopathy in the imaged portions of the head and the neck. Chest: Photopenic 10 mm hypodense nodule in the right thyroid lobe. Mild FDG avidity in the right axilla and right mastectomy bed, expected postsurgical change (max SUV 1.4. No convincing evidence of focal nodular FDG avidity to suggest residual or recurrent disease. The largest lymph node in the right axilla measures 5 mm in the short axis (series 2 image 71; max SUV 1.1). A prominent lymph node posterior and medial to the right pectoralis minor also measures 5 mm in the short axis (series 2 image 55; neck SUV 0.8). No FDG avid or pathologically enlarged axillary, supraclavicular, internal mammary, or mediastinal lymphadenopathy. Minimal atherosclerosis of the descending thoracic aorta. Top normal heart size. Aortic valve and mitral annular calcification. No pericardial or pleural effusion. No FDG avid disease in the lung parenchyma. Abdomen and pelvis: Mild FDG avidity noted within the bilateral adrenal glands without and anatomic correlate suggest the presence of an underlying lesion or nodule (max SUV 2.4). Otherwise there is mild focal FDG avidity in the region of the terminal ileum and more proximal small bowel, likely physiologic. Photopenic 3.1 cm cystic lesion in the left ovary, incompletely evaluated on this noncontrast examination. Several additional adjacent prominent follicles noted in the left ovary. Physiologic excretion of radiotracer in the kidneys and bladder. No FDG avid abdominal or pelvic lymphadenopathy. Musculoskeletal: No FDG avid or destructive osseous lesion. IMPRESSION: 1. Initial PET/CT demonstrates postsurgical changes of right mastectomy with associated mild FDG avidity in the operative bed, expected postsurgical change. No FDG avid or pathologically enlarged lymph nodes. No evidence of metastatic disease. 2. Photopenic 3.1 cm cystic lesion the left ovary. This is unexpected for a postmenopausal patient, although this is likely benign. If there is clinical concern, this would be better evaluated with pelvic ultrasound. Electronically signed by: Aryan Potter M.D. 04/15/2017 9:51 AM Dictated Date/Time: 04/15/2017 9:38 AM
== END | disposition home or self-care (01) ==
LOC: C.PET 07:08
PROVIDERS: ATTEND Internal Medicine Hematology & Oncology
DX: D49.3 Neoplasm of unspecified behavior of breast (principal); Z90.12 Acquired absence of left breast and nipple; N83.292 Other ovarian cyst, left side

== ENCOUNTER → 2017-04-30 | Outpatient (CLI) | payer OTHER ==
--- NOTE | 2017-04-30 10:31 | DIAGNOSTIC IMAGING REPORT ---
PELVIC COMPLETE NON OB, TRANSVAG-FEMALE PELVIS CLINICAL HISTORY: 71 years-old Female presenting with N83.209 Ovarian [id number]. TECHNIQUE: Real-time grayscale and color and spectral Doppler ultrasound imaging of the pelvis was performed first using a transabdominal probe and subsequently transvaginal for better characterization. COMPARISON: PET/CT from 04/15/2017. FINDINGS: Uterus: Normal. Anteverted. The uterus measures 5.9 x 1.7 x 3.3 cm. Endometrial stripe measures 4 mm in thickness. Endometrium contains foci of hyperechogenicity, which could suggest tamoxifen treatment. Cervix normal. Right adnexa: Right ovary not visualized. Left adnexa: Left ovary contains a complex multiseptated cystic lesion. The lesion overall measures 4.2 x 2.1 x 2.1 cm. Left ovary measures 4.8 x 2.9 x 2.7. cm. Normal color Doppler flow and arterial and venous waveforms within the ovarian parenchyma. Other: No free fluid. IMPRESSION: Complex multiseptated left ovarian cystic lesion. This appearance raises concern for a benign, borderline, or malignant ovarian epithelial neoplasm. Gynecologic consultation recommended. Electronically signed by: Aryan Potter M.D. 04/30/2017 10:30 AM Dictated Date/Time: 04/30/2017 10:24 AM
== END | disposition home or self-care (01) ==
LOC: C.ULTR 09:10
PROVIDERS: ATTEND Family Medicine
DX: N83.209 Unspecified ovarian cyst, unspecified side (principal)

== ENCOUNTER → 2017-05-08 | Outpatient (CLI) | payer OTHER | END | disposition home or self-care (01) | LOC: C.LAB1850 16:25 | PROVIDERS: ATTEND Obstetrics & Gynecology | DX: N83.299 Other ovarian cyst, unspecified side (principal) ==

== ENCOUNTER → 2017-08-27 | Outpatient (CLI) | payer OTHER ==
[~2017-08-27] MED LIST changes: +ANAS1TAB19 PO; +CHOL20007 PO; -CIPR-255 PO; -HYDR-5688 PO; +OXYC-57 PO
== END | disposition home or self-care (01) ==
LOC: C.MAMM 14:51
PROVIDERS: ATTEND Internal Medicine Hematology & Oncology
DX: M85.88 Other specified disorders of bone density and structure, other site (principal); M85.852 Other specified disorders of bone density and structure, left thigh; M81.0 Age-related osteoporosis without current pathological fracture; C50.919 Malignant neoplasm of unspecified site of unspecified female breast